=== PATIENT | female | born 1995 | race Caucasian/White ===

== ENCOUNTER 2019-11-11 10:28 | Emergency (ER) | payer BC, MEDICAID ==
[~2019-11-11] VITALS: Ht 157.5 cm; Wt 43.1 kg
[2019-11-11 10:30] VITALS: BP_SYST 135
--- NOTE | 2019-11-11 10:30 | NUR ---
Patient triaged and placed in waiting room. VSS and patient appears in no acute distress at this time. Accompanied by MOTHER, awaiting available bed, and MD notified of need for MSE.
--- NOTE | 2019-11-11 13:36 | NUR ---
Patient left without being seen by
== END 2019-11-11 13:36 | disposition left against medical advice (07) ==
LOC: EDBD 10:28 → SED 10:28
DX: H92.01 Otalgia, right ear (principal); Z53.21 Procedure and treatment not carried out due to patient leaving prior to being seen by health care provider